=== PATIENT | female | born 1940 | race Caucasian/White ===

== ENCOUNTER 2021-09-07 16:08 | Emergency (ER) | payer MEDICAID, MEDICARE ==
--- NOTE | 2021-09-07 17:03 | EDM.PDOC ---
ED HPI GENERAL MEDICAL PROBLEM - General Chief Complaint: Respiratory Problem Stated Complaint: COVID Time Seen by Provider: 09/07/21 17:01 Source of Information: Reports: Patient History Limitations: Reports: No Limitations - History of Present Illness INITIAL COMMENTS - FREE TEXT/NARRATIVE: HISTORY AND PHYSICAL: History of present illness: Patient is a 80-year-old female who presents to the emergency room after having a home test of COVID-19 result positive. She states her daughter is symptomatic and required her to get tested. She has noted a dry nonproductive cough ot herwise feels "great". Patient denies any fever, chills, headache, change in vision, syncope or near syncope. Denies any chest pain, back pain, shortness of breath. Denies any abdominal pain, nausea, vomiting, diarrhea, constipation or dysuria. Has not noted any blood in urine or stool. Patient has been eating and drinking appropriately. No recent travel or sick contacts. Review of systems: As per history of present illness and below otherwise all systems reviewed and negative. Past medical history: As per history of present illness and as reviewed below otherwise noncontributory. Surgical history: As per history of present illness and as reviewed below otherwise noncontributory. Social history: See social history for further information Family history: As per history of present illness and as reviewed below otherwise noncontributory. Physical exam: General: Well developed and well nourished. Alert and orientated x 3. Nontoxic in appearance and in no acute distress. Vital signs are stable and have been reviewed by me. Nursing notes were reviewed. HEENT: Atraumatic, normocephalic, pupils equal and reactive bilaterally, negative for conjunctival pallor or scleral icterus, mucous membranes moist, TMs normal bilaterally, throat clear, neck supple, nontender, trachea midline. No drooling or trismus noted. No meningeal signs. No hot potato voice noted. Lungs: Clear to auscultation bilaterally. No wheezes, rales, or rhonchi. Chest nontender. Normal work of breathing, no accessory muscles used. Heart: S1S2, regular rate and rhythm without overt murmur, gallops, or rubs. No JVD. No peripheral edema Abdomen: Soft, nondistended, nontender. Normoactive bowel sounds. Negative for masses or costovertebral tenderness. Skin: Intact, warm, dry. No lesions or rashes noted. Hematologic: No petechiae or purpra. Mucosa appropriate color and normal nail bed color and refill. Extremities: Atraumatic, moves all extremities per self without difficulty or deficits, negative for cords or calf pain. Neurovascular unremarkable. Neuro: Awake, alert, oriented. Cranial nerves II through XII unremarkable. Cerebellum unremarkable. Motor and sensory unremarkable throughout. Exam nonf ocal. Psychiatric: Mood and affect are appropriate. Normal thought process. Answering questions appropriately. Please note that the patient was seen and evaluated during the 2019 SARS-CoV-2 novel coronavirus pandemic period. Community viral transmission is ongoing at time of this encounter and the emergency department is operating under pandemic response procedures. Medical Decision Making: Patient is a 80-year-old female who presents to the emergency room with a cough and home COVID-19 test that is positive. She states her daughter made her come for evaluation to make sure everything is "okay". We will obtain a Covid swab so she can receive the antibody therapy due to her comorbidities. Chest x-ray is unremarkable. Her vital signs remained stable. I have talked with the patient about today's findings, in addition to providing specific details for plan of care. Reassessment at the time of disposition demonstrates that the patient is in no acute distress. The patient is stable for discharge, counseling was provided and we discussed in great detail signs and symptoms that would prompt them to return to the Emergency Department. Medication, follow up and supportive care measures were reviewed and discussed. Voices understanding and is agreeable to plan of care. Denies any further questions or concerns at this time. Diagnostics: COVID-19, chest x-ray Therapeutics: None Prescription: Outpatient antibody Impression: COVID-19 Plan: 1. Your COVID-19 screening is positive. That means you do have the coronavirus and you are considered contagious. Your vital signs and oxygen saturation are well enough that you were able to monitor your symptoms at home. Due to your comorbidities I have recommended you receive outpatient antibody therapy. The hospital should be calling you tomorrow to set up a one time infusion. Continue to monitor for trouble breathing, new confusion or inability to arouse, bluish lips or face or any of the other symptoms we discussed -if this occurs please return to the emergency room immediately. 2. Please self quarantine until cleared by [facility] Department. Inform any persons that you have been in contact with since you started becoming symptomatic that you have tested positive; they should be made aware and take the appropriate steps as needed. 3. You can take NyQuil during the evening to help get a restful night sleep. May alternate Tylenol and ibuprofen as needed for pain and fever management. 4. The [facility] will be calling you and following up with you. The [place] COVID 19 Hotline phone number , They are open Monday - Monday 7am - 7pm. Follow up with your primary care provider for re-evaluation as directed. Definitive disposition and diagnosis as appropriate pending reevaluation and review of above. - Related Data Allergies Allergy/AdvReac Type Severity Reaction Status Date / Time No Known Allergies Allergy Verified 09/07/21 17:00 Home Meds: Home Meds Clopidogrel [Plavix] 09/07/21 [History] Levothyroxine Sodium [Levothyroxine] 09/07/21 [History] Metoprolol/Hydrochlorothiazide [Metoprolol-HCTZ 50-25 MG] 09/07/21 [History] atorvaSTATin [Lipitor] 09/07/21 [History] lisinopriL [Lisinopril] 09/07/21 [History] ED ROS GENERAL - Review of Systems Review Of Systems: Comprehensive ROS is negative, except as noted in HPI. ED EXAM, GENERAL - Physical Exam Exam: See Below (See dictation) Course - Vital Signs Last Recorded V/S: Last Vital Signs Temp 100.3 F 09/07/21 16:56 Pulse 68 09/07/21 16:56 Resp 22 H 09/07/21 16:56 BP 119/61 09/07/21 16:56 Pulse Ox 69 L 09/07/21 16:56 - Orders/Labs/Meds Orders: Active Orders 24 hr Category Date Time Status CORONAVIRUS COVID-19 KANG [[facility]LEC] Stat Lab 09/07/21 18:07 Received Departure - Departure Time of Disposition: 18:52 Disposition: Home, Self-Care 01 Clinical Impression: COVID-19 - Discharge Information Instructions: 10 Things You Can Do to Manage Your COVID-19 Symptoms at Home - [facility] (05/28/2021) Referrals: PCP,None [Primary Care Provider] - Forms: ED Department Discharge Additional Instructions: The following information is given to patients seen in the emergency department who are being discharged to home. This information is to outline your options for follow-up care. We provide all patients seen in our emergency department with a follow-up referral. The need for follow-up, as well as the timing and circumstances, are variable depending upon the specifics of your emergency department visit. If you don't have a primary care physician on staff, we will provide you with a referral. We always advise you to contact your personal physician following an emergency department visit to inform them of the circumstance of the visit and for follow-up with them and/or the need for any referrals to a consulting specialist. The emergency department will also refer you to a specialist when appropriate. This referral assures that you have the opportunity for follow-up care with a specialist. All of these measure are taken in an effort to provide you with optimal care, which includes your follow-up. Under all circumstances we always encourage you to contact your private physician who remains a resource for coordinating your care. When calling for follow-up care, please make the office aware that this follow-up is from your recent emergency room visit. If for any reason you are refused follow-up, please contact the [facility] Department at and asked to speak to the emergency department charge nurse. [facility] [address] [place] [id number] [place] [address] Thank you for choosing the [facility] emergency department in [place] for your medical needs today. It was a pleasure caring for you. Today you were seen in the emergency department for COVID-19 1. Your COVID-19 screening is positive. That means you do have the coronavirus and you are considered contagious. Your vital signs and oxygen saturation are w ell enough that you were able to monitor your symptoms at home. Due to your comorbidities I have recommended you receive outpatient antibody therapy. The hospital should be calling you tomorrow to set up a one time infusion. Continue to monitor for trouble breathing, new confusion or inability to arouse, bluish lips or face or any of the other symptoms we discussed -if this occurs please return to the emergency room immediately. 2. Please self quarantine until cleared by [facility] Department. Inform any persons that you have been in contact with since you started becoming symptomatic that you have tested positive; they should be made aware and take the appropriate steps as needed. 3. You can take NyQuil during the evening to help get a restful night sleep. May alternate Tylenol and ibuprofen as needed for pain and fever management. 4. The [facility] department will be calling you and following up with you. The [place] COVID 19 Hotline phone number , They are open Monday - Monday 7am - 7pm. Follow up with your primary care provider for re-evaluation as directed. Sepsis Event Note (ED) - Evaluation Sepsis Screening Result: No Definite Risk - Focused Exam Vital Signs: Vital Signs Temp Pulse Resp BP Pulse Ox 09/07/21 16:56 100.3 F 68 22 H 119/61 69 L - My Orders Last 24 Hours: My Active Orders 09/07/21 18:07 CORONAVIRUS COVID-19 KANG [MOLEC] Stat - Assessment/Plan Last 24 Hours: My Active Orders 09/07/21 18:07 CORONAVIRUS COVID-19 KANG [MOLEC] Stat
--- NOTE | 2021-09-07 18:46 | CR ---
INDICATION: Pain. Shortness of breath. TECHNIQUE: AP portable upright chest. FINDINGS: Clear lungs. Normal heart size and pulmonary vascularity. Degenerative change of the shoulders particularly the right AC joint and glenohumeral joints. IMPRESSION: No acute cardiopulmonary process identified. Dictated by Blaise rAroyo MD @ 09/07/2021 6:44:21 PM (Electronically Signed)
== END 2021-09-07 19:22 | disposition home or self-care (01) ==
LOC: MW.ED 16:08
DX: U07.1 COVID-19 (principal)
CPT/HCPCS: 71045; 71045-26; 99283-25; U0002

== ENCOUNTER 2022-03-26 13:36 | Inpatient (IN) | payer MEDICAID ==
[2022-03-26] MEDS ORDERED: Ondansetron 4 MG/2 ML SDV IVPUSH ONE ×2 (14:10→16:21)
[2022-03-26] MEDS ORDERED: Sodium Chloride 0.9% 1,000 ML IV ONE (14:10)
[2022-03-26] MEDS ORDERED: Sodium Chloride 0.9% 10 ML Syringe FLUSH PRN (14:10)
[2022-03-26] MEDS ORDERED: Sodium Chloride 0.9% 2.5 ML Syringe FLUSH PRN (14:10)
[2022-03-26 14:54] LABS: CARBON DIOXIDE,CO2 20.6 mmol/L (21.0-32.0); POTASSIUM,K 4.7 mmol/L (3.5-5.1)
[2022-03-26] MEDS ORDERED: fentaNYL 50 MCG/ML SDV IVPUSH ONE (16:45)
[2022-03-26] MEDS ORDERED: cefTRIAXone 1 GM in Sodium Chloride 0.9% 50 ML IV ONE (16:58)
[2022-03-26] MEDS ORDERED: Morphine 2 MG/ML SYRINGE IVPUSH PRN (20:56)
[2022-03-26] MEDS ORDERED: Ondansetron 4 MG/2 ML SDV IVPUSH PRN (20:57)
[2022-03-26] MEDS: Sodium Chloride 0.9% 1,000 ML IV SCH (21:54)
[2022-03-26] MEDS ORDERED: Acetaminophen 325 MG Tab PO PRN (22:18)
[2022-03-27] MEDS: PIPERACILLIN IV SCH ×2 (00:10→05:09)
[2022-03-27] MEDS: TAZOBACTAM IV SCH ×2 (00:10→05:09)
[2022-03-27] MEDS: SODIUM CHLORIDE 0.9% IV SCH ×2 (00:10→05:09)
[2022-03-27 06:33] LABS: CARBON DIOXIDE,CO2 21.2 mmol/L (21.0-32.0)
[2022-03-27] MEDS: Sodium Chloride 0.9% 1,000 ML IV SCH ×2 (08:39→20:08)
[2022-03-27] MEDS ORDERED: Metoprolol Tartrate 50 MG Tab PO SCH (09:00)
[2022-03-27] MEDS ORDERED: Non-Formulary Medication 1 Each (Lisinopril [Lisinopril] 40 MG Tablet) PO SCH (09:00)
[2022-03-27] MEDS: Hydrochlorothiazide 25 MG Tab PO SCH (09:27)
[2022-03-27] MEDS: atorvaSTATin 20 MG Tab PO SCH (09:27)
[2022-03-27] MEDS: Levothyroxine 75 MCG Tab PO SCH (09:27)
[2022-03-27] MEDS: Metoprolol Tartrate 50 MG Tab PO SCH (09:29)
[2022-03-27] MEDS: Clopidogrel 75 MG Tab PO SCH (09:29)
[2022-03-27] MEDS: Piperacillin/Tazobactam 2.25 GM in Sodium Chloride 0.9% 50 ML IV SCH ×3 (11:01→23:35)
[2022-03-28] MEDS: Piperacillin/Tazobactam 2.25 GM in Sodium Chloride 0.9% 50 ML IV SCH ×4 (04:36→22:55)
[2022-03-28] MEDS: Sodium Chloride 0.9% 1,000 ML IV SCH (05:34)
[2022-03-28 06:45] LABS: CARBON DIOXIDE,CO2 22.8 mmol/L (21.0-32.0); POTASSIUM,K 4.1 mmol/L (3.5-5.1)
[2022-03-28] MEDS: Metoprolol Tartrate 50 MG Tab PO SCH (09:48)
[2022-03-28] MEDS: Clopidogrel 75 MG Tab PO SCH (09:48)
[2022-03-28] MEDS: Levothyroxine 75 MCG Tab PO SCH (09:48)
[2022-03-28] MEDS: atorvaSTATin 20 MG Tab PO SCH (09:48)
[2022-03-28] MEDS: Hydrochlorothiazide 25 MG Tab PO SCH (09:48)
[2022-03-29] MEDS: Piperacillin/Tazobactam 2.25 GM in Sodium Chloride 0.9% 50 ML IV SCH ×2 (05:19→10:00)
[2022-03-29 06:39] LABS: CARBON DIOXIDE,CO2 21.4 mmol/L (21.0-32.0); POTASSIUM,K 3.8 mmol/L (3.5-5.1)
[2022-03-29] MEDS: Levothyroxine 75 MCG Tab PO SCH (09:59)
[2022-03-29] MEDS: Clopidogrel 75 MG Tab PO SCH (09:59)
[2022-03-29] MEDS: Metoprolol Tartrate 25 MG Tab PO SCH ×2 (09:59→20:11)
[2022-03-29] MEDS: Lisinopril 10 MG Tab PO SCH (10:08)
[2022-03-29] MEDS ORDERED: cefTRIAXone 1 GM in Sodium Chloride 0.9% 50 ML IV SCH ×2 (13:00→14:30)
[2022-03-29] MEDS ORDERED: Rosuvastatin 10 MG Tab PO SCH (21:00)
[2022-03-30 07:07] LABS: CARBON DIOXIDE,CO2 25.2 mmol/L (21.0-32.0); POTASSIUM,K 3.6 mmol/L (3.5-5.1)
[2022-03-30] MEDS ORDERED: Levothyroxine 75 MCG Tab PO SCH (07:45)
[2022-03-30] MEDS: Metoprolol Tartrate 25 MG Tab PO SCH (08:47)
[2022-03-30] MEDS: Clopidogrel 75 MG Tab PO SCH (08:48)
[2022-03-30] MEDS: Lisinopril 10 MG Tab PO SCH (08:48)
[2022-03-30] MEDS ORDERED: Cefdinir 300 MG Cap PO SCH (11:00)
== END 2022-03-30 12:30 | disposition home or self-care (01) | DRG 872 ==
LOC: MW.ED 13:36 → OBSVTOIN 17:56 → MW.MS 17:56
PROVIDERS: ADMIT Internal Medicine; ATTEND Internal Medicine
DX: A41.9 Sepsis, unspecified organism (principal); N30.01 Acute cystitis with hematuria; N17.9 Acute kidney failure, unspecified; I25.10 Atherosclerotic heart disease of native coronary artery without angina pectoris; E03.9 Hypothyroidism, unspecified; D18.03 Hemangioma of intra-abdominal structures; E78.00 Pure hypercholesterolemia, unspecified; B96.20 Unspecified Escherichia coli [E. coli] as the cause of diseases classified elsewhere; K80.20 Calculus of gallbladder without cholecystitis without obstruction; K76.9 Liver disease, unspecified; Z79.02 Long term (current) use of antithrombotics/antiplatelets; Z85.038 Personal history of other malignant neoplasm of large intestine; Z95.5 Presence of coronary angioplasty implant and graft; Z79.890 Hormone replacement therapy; Z79.899 Other long term (current) drug therapy; Z85.048 Personal history of other malignant neoplasm of rectum, rectosigmoid junction, and anus; Z20.822 Contact with and (suspected) exposure to COVID-19; D69.6 Thrombocytopenia, unspecified; I12.9 Hypertensive chronic kidney disease with stage 1 through stage 4 chronic kidney disease, or unspecified chronic kidney disease; N18.9 Chronic kidney disease, unspecified
CPT/HCPCS: 36415; 74176; 74176-26; 74181; 74181-26; 76700; 76700-26; 80048; 80053; 80202; 81001; 83605; 83690; 83735; 84484; 85025; 87040; 87045; 87046; 87077; 87086; 87088; 87186; 87449; 87899; 93005; 96361; 96365; 96366; 96367; 96375; 96376; 99285-25; A9270-GY; G0378; J0696; J2405; J2543; J3010; J3370; J3490; J7030; J7050; U0002

== ENCOUNTER 2022-10-18 18:55 | Emergency (ER) | payer MEDICAID ==
[2022-10-18 20:35] LABS: CARBON DIOXIDE,CO2 25.7 mmol/L (21.0-32.0); POTASSIUM,K 3.7 mmol/L (3.5-5.1)
== END 2022-10-18 21:18 | disposition home or self-care (01) ==
LOC: MW.ED 18:55
DX: I20.9 Angina pectoris, unspecified (principal); I25.10 Atherosclerotic heart disease of native coronary artery without angina pectoris; E78.00 Pure hypercholesterolemia, unspecified; I10 Essential (primary) hypertension; I25.2 Old myocardial infarction; Z79.02 Long term (current) use of antithrombotics/antiplatelets; Z79.899 Other long term (current) drug therapy
CPT/HCPCS: 36415; 80053; 82150; 84484; 85025; 93005; 99285

== ENCOUNTER 2024-09-25 08:20 | Day surgery (SDC) | payer MEDICAID ==
[2024-09-25] MEDS: Lactated Ringers 1,000 ML IV SCH (08:45)
[2024-09-25 08:51] LABS: HEMATOCRIT 41.2 % (37.0-47.0); HEMOGLOBIN 14.2 g/dL (12.0-16.0); MEAN CORPUSCULAR HEMOGLOBIN 29.5 pg (28.0-32.0); MEAN CORPUSCULAR HGB CONC 34.5 g/dL (32.0-36.0); MEAN CORPUSCULAR VOLUME 85.5 fL (83.0-99.0); MEAN PLATELET VOLUME 11.9 fL (9.4-12.3); PLATELET COUNT,PLT 105 K/uL (150-400); RED BLOOD CELL COUNT 4.82 M/uL (4.10-5.30); WHITE BLOOD CELL COUNT,WBC 11.02 K/uL (3.9-11.3)
[2024-09-25] MEDS ORDERED: propofoL 500 MG/50 ML 50 ML ONE (09:09)
[2024-09-25] MEDS ORDERED: Lidocaine 2% 5 ML SDV ONE (09:09)
[2024-09-25] MEDS ORDERED: Propofol 200 MG/20 ML SDV ONE (10:19)
== END 2024-09-25 11:36 | disposition home or self-care (01) ==
LOC: EEVIPCON 08:20 → MW.SDS 08:20
PROVIDERS: ATTEND Surgery
DX: Z12.11 Encounter for screening for malignant neoplasm of colon (principal); D12.8 Benign neoplasm of rectum; K21.00 Gastro-esophageal reflux disease with esophagitis, without bleeding; K29.50 Unspecified chronic gastritis without bleeding; K31.89 Other diseases of stomach and duodenum; Z85.038 Personal history of other malignant neoplasm of large intestine; I10 Essential (primary) hypertension; E78.00 Pure hypercholesterolemia, unspecified; I25.10 Atherosclerotic heart disease of native coronary artery without angina pectoris; E03.9 Hypothyroidism, unspecified; Z79.890 Hormone replacement therapy; Z79.899 Other long term (current) drug therapy
CPT/HCPCS: 36415; 43239; 45380; 85027; J2704; J7120; 00813; 99100; J3490